=== PATIENT | male | born 1995 ===

== ENCOUNTER 2016-12-14 15:32 | Emergency (ER) | payer OTHER ==
--- NOTE | 2016-12-14 15:58 | EDPHY ---
H & P Time Seen by Provider: 12/14/16 15:46 HPI/ROS: Chief complaint. Rash Patient was seen by Dr. Crystal and not by me Smoking Status: Current some day smoker Constitutional: Initial Vital Signs Temperature (C) 36.7 C 12/14/16 15:35 Heart Rate 68 12/14/16 15:35 Respiratory Rate 16 12/14/16 15:35 Blood Pressure 126/68 H 12/14/16 15:35 O2 Sat (%) 99 12/14/16 15:35 O2 Delivery Mode Room Air Allergies/Adverse Reactions: No Known Allergies Allergy (Unverified 12/14/16 15:40) Home Medications: Medication Instructions Recorded NK [No Known Home Meds] 12/14/16 Departure - Departure Referrals: UNKNOWN,UNKNOWN [Other] - As per Instructions
--- NOTE | 2016-12-14 16:09 | EDPHY ---
HPI/HX/ROS/PE/MDM Narrative: CHIEF COMPLAINT: Shoulder rash HISTORY OF PRESENT ILLNESS: The patient is a 20-year-old male presenting with a right shoulder rash that has been present since September. The rash is slightly itchy. He denies fever, vomiting, or diarrhea. Patient has no other complaints. He would like to have blood work and STD testing done while he is here. He is not having any symptoms of STDs (no hematuria, dysuria, penile discharge, abdominal pain). No medical complaints except rash but wishes blood work for baseline data. REVIEW OF SYSTEMS: Aside from elements discussed in the HPI, a comprehensive 10-point review of systems was reviewed and is negative. PAST MEDICAL HISTORY: Denies. SOCIAL HISTORY: [employer] student. VITAL SIGNS: Reviewed by me GENERAL: Well-developed, well-nourished, resting comfortably in no respiratory distress. HEENT: Atraumatic. Eyes: No icterus, no injection. Mouth: moist mucous membranes. No erythema or lesions. Neck: supple with no adenopathy. EXTREMITIES: No trauma. No edema. Range of motion is normal throughout. NEURO: Alert and oriented, grossly nonfocal. SKIN: Circular scaling hypopigmented area to shoulder, anterior chest, on back over thoracic spine, and over hip. Nothing in the antecubital fossa. PSYCHIATRIC: Normal mentation, no agitation. Portions of this note were transcribed by a medical office technician. I personally performed a history, physical exam, medical decision making, and confirmed accuracy of information the transcribed note. ED Course: Rash consistent with tinea corpus. Will give instrucition regarding antifungal creams. Understands baseline bloodwork best done at PCP. Has insurance and given referrals to PCP as well as [facility], as he is a student. MDM: Diff dx considered included tinea, contact dermititis, eczema, cellulitis, allegic reaction. General Time Seen by Provider: 12/14/16 15:46 Initial Vital Signs: Initial Vital Signs Temperature (C) 36.7 C 12/14/16 15:35 Heart Rate 68 12/14/16 15:35 Respiratory Rate 16 12/14/16 15:35 Blood Pressure 126/68 H 12/14/16 15:35 O2 Sat (%) 99 12/14/16 15:35 O2 Delivery Mode Room Air Allergies/Adverse Reactions: No Known Allergies Allergy (Unverified 12/14/16 15:40) Home Medications: Medication Instructions Recorded NK [No Known Home Meds] 12/14/16 Departure - Departure Disposition: Home, Routine, Self-Care Clinical Impression: Tinea corporis Condition: Good Instructions: Acute Rash (ED) Additional Instructions: 1. I recommend using over the counter antifungal creams such as Clotrimazole. You can speak to the pharmacist to ask which creams are appropriate. 2. Apply the cream to the rash areas twice per day for the next week. 3. You have been referred to a Crew Trainer as well as a primary care physician below. I suggest calling the primary care physician tomorrow to arrange a followup appointment and to establish care. Referrals: Hong Peterson MD [Medical Doctor] - As per Instructions (Primary Care Physician) [facility] [Provider Group] - As per Instructions Report Scribed for: Kristen Crystal Report Scribed by: Sana Curry Date of Report: 12/14/16 Time of Report: 16:13
[2016-12-14 16:29] VITALS: BP 120/67; PULSE 90; RESP 20; TEMP 98.6; O2SAT 97
== END 2016-12-14 16:40 | disposition home or self-care (01) ==
DX: B35.4 Tinea corporis (principal); F17.200 Nicotine dependence, unspecified, uncomplicated